=== PATIENT | female | born 1965 | race Caucasian/White ===

== ENCOUNTER 2022-03-20 15:55 | Inpatient (IN) | payer SELFPAY ==
[~2022-03-20] VITALS: Ht 170.2 cm; Wt 129.9 kg
[~2022-03-20 15:55] MED LIST: CAPSAICIN60 GM TP; NORCO 325 MG-51 TAB PO; SOLARAZE3% TP
[2022-03-20 16:57] LABS: HEMATOCRIT 38.5 % (37.0-47.0); HEMOGLOBIN 12.8 g/dl (12.5-16.0); MEAN CELL VOLUME 84 fl (80.0-100.0); MEAN CORPUSCULAR HEMOGLOBIN 28 pg (27-31); MEAN CORPUSCULAR HGB CONC 33 g/dl (33.0-37.0); MEAN PLATELET VOLUME 9.6 fl (7.4-10.4); PLATELET COUNT 154 K/mm3 (130-400); RED BLOOD COUNT 4.59 M/mm3 (4.10-5.30); REDCELL DISTRIBUTION WIDTH-CV 13.9 % (11.5-14.5)
[2022-03-20 17:14] LABS: ALANINE AMINOTRANSFERASE 24 U/L (0-55); ALBUMIN 3.8 gm/dL (3.5-5.0); ALKALINE PHOSPHATASE 82 U/L (40-150); ANION GAP 14 mmol/L (7-16); AST,SGOT 28 U/L (5-34); BILIRUBIN,TOTAL 0.4 mg/dL (0.2-1.2); BLOOD UREA NITROGEN 8 mg/dL (10-20); CARBON DIOXIDE 20 mmol/L (22-29); CHLORIDE 106 mmol/L (98-107); CREATININE, serum 0.87 mg/dL (0.57-1.11); GLUCOSE 105 mg/dL (70-99); POTASSIUM 3.7 mmol/L (3.5-4.5); SODIUM 140 mmol/L (136-145); TOTAL PROTEIN 7.4 gm/dL (6.2-8.1)
[2022-03-20 17:31] LABS: BAND 8 % (0-10); BASOPHIL 2 % (0-2); EOSINOPHIL 4 % (0-4); LYMPHOCYTE 17 % (20.0-51.0); METAMYELOCYTE 1 % (0-0); NEUTROPHILS 51 % (42.0-75.2); PLATELET ESTIMATE NORMAL (NORMAL)
[2022-03-20 17:34] LABS: TSH w REFLEX 0.303 uIU/mL (0.350-4.940)
[2022-03-20 17:36] LABS: TROPONIN-I < 0.010 ng/mL (0.00-0.033)
[2022-03-20 19:16] LABS: COLLECTION METHOD CLEAN CATCH
[2022-03-20 19:21] LABS: MUCOUS Present (NOT PRESENT); PH 6 (5-8); SQUAMOUS EPITHELIAL 0-2 /hpf (0-10); URINE APPEARANCE Clear (CLEAR/HAZY); URINE BACTERIA None Seen /hpf (NONE SEEN); URINE BILIRUBIN Negative (NEGATIVE); URINE BLOOD 2+ (NEGATIVE); URINE COLOR Yellow (YELLOW); URINE GLUCOSE Negative (NEGATIVE); URINE KETONE Negative (NEGATIVE); URINE LEUKOCYTE ESTERASE Negative (NEGATIVE); URINE NITRATE Positive (NEGATIVE); URINE PROTEIN(semi-quant) Negative (NEGATIVE); URINE RBC None Seen /hpf (0-2); URINE UROBILINOGEN Negative (NEGATIVE)
[2022-03-20] MEDS ORDERED: TIROSINT25 MC1 PO (19:39)
[2022-03-20] MEDS ORDERED: PROZAC40 MG PO ×2 (19:39→22:29)
[2022-03-20] MEDS ORDERED: TENORMIN 5050 MG/TAB PO (19:40)
[2022-03-20] MEDS ORDERED: PRILOSEC 20MG20 MG PO (19:40)
[2022-03-20] MEDS ORDERED: ATIVAN 1MG T1 MG/TAB PO (19:41)
[2022-03-20 20:25] LABS: INR 1.2 (0.8-3.0); PROTHROMBIN TIME 13.5 SECONDS (9.7-12.8)
[2022-03-20 21:25] VITALS: BP 149/70; PULSE 74; TEMP 98.3
[2022-03-20] MEDS ORDERED: SYNTHROID 0.0.025 MG PO (22:28)
[2022-03-20] MEDS ORDERED: TENORMIN 2525 MG/TAB PO (22:29)
[2022-03-20] MEDS ORDERED: SYNTHROID0.2 MG/TAB PO (22:29)
[2022-03-21 00:29] VITALS: BP 155/78; PULSE 65; TEMP 98.8
[2022-03-21 05:41] VITALS: BP 128/62; PULSE 58; TEMP 98.8
--- NOTE | 2022-03-21 06:15 | NUR ---
PT ARRIVED TO THE MEDICAL FLOOR AROUND 0HRS TO RM 305. PT A&O X 4; VSS; O2 2L VIA OXYMASK. PT COMPLAINED OF A HEADACHE. PT GIVEN TRAMADOL AND TYLENOL. PT FELT, ALTHOUGH IT TOOK A LONG TIME TO GET HER PAIN UNDER CONTROL, IT WAS BETTER BY MORNING. PT DENIED CHEST PAIN, N,V,D OR DIZZINESS. PT'S O2 SATS DROPPED DOWN TO 86% DURING MY ASSESSMENT. RT CALLED AND O2 RAISED TO 4L. PT'S O2 SATS UP TO 94%. ADMISSIONS ASSESSMENT AND MED REC COMPLETE. PT ORIENTED TO ROOM AND HOSPITAL POLICY. POC DISCUSSED WITH PT. PT VERBALIZED UNDERSTANDING. ALL QUESTIONS AND CONCERNS ADDRESSED. PT EXPRESSED NO ADDITIONAL NEEDS AT THIS TIME. CALL LIGHT WITHIN REACH.
--- NOTE | 2022-03-21 06:30 | NUR ---
PATIENT IS AWAKE IN THE ROOM, DENIES ANY NEEDS AT THIS TIME
[2022-03-21 06:49] LABS: HEMOGLOBIN 11.7 g/dl (12.5-16.0); MEAN CELL VOLUME 86 fl (80.0-100.0); MEAN CORPUSCULAR HEMOGLOBIN 28 pg (27-31); MEAN CORPUSCULAR HGB CONC 32 g/dl (33.0-37.0); PLATELET COUNT 139 K/mm3 (130-400); RED BLOOD COUNT 4.19 M/mm3 (4.10-5.30); REDCELL DISTRIBUTION WIDTH-CV 13.9 % (11.5-14.5)
[2022-03-21 06:55] LABS: HEMATOCRIT 36.2 % (37.0-47.0)
[2022-03-21 07:08] LABS: ALBUMIN 3.5 gm/dL (3.5-5.0); BILIRUBIN,TOTAL 0.3 mg/dL (0.2-1.2); CALCIUM 8.8 mg/dL (8.4-10.2); CREATININE, serum 0.82 mg/dL (0.57-1.11); POTASSIUM 4.1 mmol/L (3.5-4.5); TOTAL PROTEIN 6.7 gm/dL (6.2-8.1)
[2022-03-21 07:13] VITALS: BP 127/64; PULSE 70; TEMP 98.4
[2022-03-21 07:54] LABS: BAND 4 % (0-10); LYMPHOCYTE 24 % (20.0-51.0); METAMYELOCYTE 2 % (0-0); MYELOCYTE 1 % (0-0); NEUTROPHILS 60 % (42.0-75.2)
[2022-03-21 07:55] LABS: HYPOCHROMIA 1+; MICROCYTOSIS 1+; PLATELET ESTIMATE NORMAL (NORMAL)
[2022-03-21 11:58] VITALS: BP 140/57; PULSE 63; TEMP 98.8
--- NOTE | 2022-03-21 12:59 | NUR ---
Patient covid positive. Phone call made to the patient's room to complete intake. Patient currently lives at home alone in [place]. She is independent with her ADL's and does not utilize any DME to assit with mobility. Patient has no home oxygen needs. PCP is Dr. Abbi Reyes and she utilizes [facility] for medications. Patient states that she can normally afford her medications unless its really expensive. Patient does not have a DPOA-HC established at this time but states that this has scared her and would like to complete one while she's here. Informed her we coordinate with the patient's RN to get this competed before discharge. Patient states that she did not get a financial assistance application at the time of admission. Let the patient know i would reach out to our financial counselor to get in contact with the patient. Patient is planning on returning home once medically ready. SW reached out to [facility] by phone and left message. Email sent as well. Discharge plan: Home
[2022-03-21 15:34] VITALS: BP 146/74; PULSE 70; TEMP 100.2
--- NOTE | 2022-03-21 19:00 | NUR ---
PT HAD UNEVENTFUL DAY. NO OTHER CONCERNS REPORT GIVEN TO CHELSEY CONLEY
[2022-03-21 21:09] VITALS: BP 142/67; PULSE 70; TEMP 98.8
--- NOTE | 2022-03-21 21:11 | NUR ---
Patient assessed around 2029. Complained of nausea at that time, and given PRN Zofran as requested. Denies pain and discomfort. Currenty on room air. Denies SOB and dyspnea. LS diminished. Reports productive cough getting better. Voiced no questions, needs, or concerns at that time. In bed with call light within reach.
[2022-03-22 00:56] VITALS: BP 151/73; PULSE 60; TEMP 99
[2022-03-22 05:33] VITALS: BP 154/86; PULSE 62; TEMP 99.6
--- NOTE | 2022-03-22 06:03 | NUR ---
Patient has worn oxygen at 2 L/min via oxymask during the night since she does not have her CPAP. Did have pain and given PRN Ultram once during the night. Also given PRN Acetaminophen this morning for low grade fever. Patient did state that she was anxious this morning and given PRN Ativan. Voices no further questions, needs, or concerns at this time. In bed with call light within reach.
[2022-03-22 06:34] LABS: GRAN # 2.4 K/mm3 (1.4-6.5); GRAN % 56.2 % (42.2-75.2); HEMOGLOBIN 11.9 g/dl (12.5-16.0); LYMPH # 1.2 K/mm3 (1.2-3.4); LYMPH % 28.8 % (20.0-51.0); MEAN CELL VOLUME 87 fl (80.0-100.0); MEAN CORPUSCULAR HEMOGLOBIN 28 pg (27-31); MEAN CORPUSCULAR HGB CONC 32 g/dl (33.0-37.0); MEAN PLATELET VOLUME 9.8 fl (7.4-10.4); MONO # 0.6 K/mm3 (0.1-0.6); MONO % 14.3 % (1.7-9.3); PLATELET COUNT 139 K/mm3 (130-400); RED BLOOD COUNT 4.25 M/mm3 (4.10-5.30); REDCELL DISTRIBUTION WIDTH-CV 14.1 % (11.5-14.5)
[2022-03-22 06:38] LABS: HEMATOCRIT 36.8 % (37.0-47.0)
[2022-03-22 06:54] LABS: ALBUMIN 3.4 gm/dL (3.5-5.0); BILIRUBIN,TOTAL 0.2 mg/dL (0.2-1.2); CALCIUM 8.6 mg/dL (8.4-10.2); CREATININE, serum 0.84 mg/dL (0.57-1.11); POTASSIUM 3.8 mmol/L (3.5-4.5); TOTAL PROTEIN 6.5 gm/dL (6.2-8.1)
[2022-03-22 07:22] VITALS: BP 142/76; PULSE 58; TEMP 98.6
[2022-03-22 11:38] VITALS: BP 148/81; PULSE 57; TEMP 98.8
[2022-03-22] MEDS ORDERED: OMNICEF 300MG300 MG PO (12:26)
[2022-03-22] MEDS ORDERED: DOXYCYCLINE HY100 MG PO (12:27)
[2022-03-22] MEDS ORDERED: DECADRON6 MG PO (12:27)
--- NOTE | 2022-03-22 13:24 | NUR ---
RESPIRATORY THERAPY DID AN EX OX WITH THE PATIENT AND SHE DOES NOT REQUIRE O2 TO GO HOME. DR. CURTIS WILL COMPLETE THE PATIENT'S DISCHARGE AT THIS TIME.
--- NOTE | 2022-03-22 13:28 | NUR ---
Patient to discharge home today and will not need home oxygen. Pillar Worker followed up with [employer] Counselor and requested she contact patient. Discharge Plan: Home
--- NOTE | 2022-03-22 14:56 | NUR ---
DISCHARGE EDUCATION IS COMPLETED. PT VERBALIZED UNDERSTANDING. FRIEND WILL BE PICKING UP PRESCRIPTIONS AND ARRIVE TO PICK HER UP WELL. PCT WILL ESCORT OUT.
== END 2022-03-22 15:00 | disposition home or self-care (01) | DRG 177 ==
LOC: COL.ER 15:55 → MEDICAL 17:59
PROVIDERS: Emergency Medicine; Nurse Practitioner Family; ADMIT Internal Medicine
DX: U07.1 COVID-19 (principal); J96.01 Acute respiratory failure with hypoxia; J12.82 Pneumonia due to coronavirus disease 2019; E87.2 Acidosis; Z68.41 Body mass index [BMI] 40.0-44.9, adult; E05.00 Thyrotoxicosis with diffuse goiter without thyrotoxic crisis or storm; M19.90 Unspecified osteoarthritis, unspecified site; F32.A Depression, unspecified; T38.0X5A Adverse effect of glucocorticoids and synthetic analogues, initial encounter; E66.9 Obesity, unspecified; I10 Essential (primary) hypertension; R32 Unspecified urinary incontinence; I45.10 Unspecified right bundle-branch block; F17.210 Nicotine dependence, cigarettes, uncomplicated; R73.9 Hyperglycemia, unspecified; F41.9 Anxiety disorder, unspecified; G43.909 Migraine, unspecified, not intractable, without status migrainosus; Z88.1 Allergy status to other antibiotic agents; Z88.8 Allergy status to other drugs, medicaments and biological substances; Z88.2 Allergy status to sulfonamides; Z90.49 Acquired absence of other specified parts of digestive tract; Z90.710 Acquired absence of both cervix and uterus
CPT/HCPCS: 99223-AI; 99233-AI; 99239; J0696; J0780; J1100; J1200; J1650; J1885; J2405; J2550; J7120; J8540; Q9967

== ENCOUNTER 2022-03-24 01:25 | Inpatient (IN) | payer SELFPAY ==
[~2022-03-24] VITALS: Ht 170.2 cm; Wt 122.2 kg
[~2022-03-24 01:25] MED LIST changes: +ATIVAN 1MG T1 MG/TAB PO; +DECADRON6 MG PO; +DOXYCYCLINE HY100 MG PO; +OMNICEF 300MG300 MG PO; +PRILOSEC 20MG20 MG PO; +PROZAC40 MG PO; +SYNTHROID 0.0.025 MG PO; +SYNTHROID0.2 MG/TAB PO; +TENORMIN 2525 MG/TAB PO; +TENORMIN 5050 MG/TAB PO; +TIROSINT25 MC1 PO
[2022-03-24 02:06] LABS: ARTERIAL BLD GAS O2 SATURATION 91.1 % (92-100); ARTERIAL BLD GAS TCO2 CT 21.9; ARTERIAL BLOOD GAS BASE EXCESS -1.2 (-2-2); ARTERIAL BLOOD GAS PCO2 28.3 mmHg (35-45); ARTERIAL BLOOD GAS PO2 58.3 mmHg (80-100); ARTERIAL BLOOD GAS pH 7.49 (7.35-7.45)
[2022-03-24 02:32] LABS: BASO % 0.3 % (0.0-2.0); EOS % 0.6 % (0.0-4.0); GRAN # 1.9 K/mm3 (1.4-6.5); GRAN % 58.6 % (42.2-75.2); HEMATOCRIT 37.7 % (37.0-47.0); HEMOGLOBIN 12.4 g/dl (12.5-16.0); LYMPH # 0.9 K/mm3 (1.2-3.4); LYMPH % 26.6 % (20.0-51.0); MEAN CELL VOLUME 84 fl (80.0-100.0); MEAN CORPUSCULAR HEMOGLOBIN 28 pg (27-31); MEAN CORPUSCULAR HGB CONC 33 g/dl (33.0-37.0); MEAN PLATELET VOLUME 9.5 fl (7.4-10.4); MONO # 0.4 K/mm3 (0.1-0.6); PLATELET COUNT 152 K/mm3 (130-400); RED BLOOD COUNT 4.47 M/mm3 (4.10-5.30); REDCELL DISTRIBUTION WIDTH-CV 14.4 % (11.5-14.5)
[2022-03-24 02:47] LABS: ALBUMIN 3.2 gm/dL (3.5-5.0); BILIRUBIN,TOTAL 0.5 mg/dL (0.2-1.2); C-REACTIVE PROTEIN 3.78 mg/dL (0.00-0.50); CALCIUM 8.6 mg/dL (8.4-10.2); CREATININE, serum 0.95 mg/dL (0.57-1.11); POTASSIUM 3.9 mmol/L (3.5-4.5); TOTAL PROTEIN 6.9 gm/dL (6.2-8.1)
[2022-03-24 05:03] VITALS: BP 125/63; PULSE 55; TEMP 98.8
--- NOTE | 2022-03-24 05:03 | NUR ---
PT BROUGHT UP FROM ED
--- NOTE | 2022-03-24 06:14 | NUR ---
Pt alert and oriented, resting quietly in bed. Follows commands. Currently on 2L NC, satting WNL. Pt reports minor headache pain, but refuses pain medication. Pt reported nausea and feeling "warm". Prn zofran administered. Pt afebrile upon arrival to unit. Skin is warm, but not diaphoretic. Pt denies chest pain/SOB. Shift assessment performed. Medications administered per orders and education provided. Admission intake and intake assessments completed. Allx confirmed. Med rx reviewed and completed. COVID and infectious disease screenings completed. Enforcing COVID isolation. VS stable on admission to unit. Pt tolerated PO medications. Nourishment provided. IV antibx continued. Noted a red/bruised/raised area on the pt's left forearm. Pt complained on pain in that spot when palpated. States it was where her last IV was placed. The area has a small red streak on the arm. Will notify dayshift to continue to monitor the spot. BLE have 1+ edema. 2+ pedal and radial pulses. Lung sounds are clear, but I did note some expiratory wheezing at rest. Pt does not report any questions at this time. Will continue to monitor.
--- NOTE | 2022-03-24 06:30 | NUR ---
PT IS AWAKE AND DOING GOOD. PT IS ON 2L O2 AND IS SATURATING 97% AND THE RESPIRATORY THERAPIST PLACED THE PATIENT ON 1L. PT IS REALLY ONLY HYPOXIC WITH EXERTION. WHEN THE PATIENT WAS DISCHARGED A COUPLE DAYS AGO, HER EXERCISE OXIMETERY DID NOT QUALIFY HER FOR OXYGEN AT THAT TIME. THE PATIENT DOES STATE THAT SHE USES A CPAP AT NIGHT. ASKED THE PATIENT TO HAVE SOMEONE BRING HER CPAP IN FOR NIGHT TIME SO WE CAN SEE IF SHE NEEDS TO HAVE OXYGEN AT NIGHT. WILL DISCUSS WITH PROVIDER FOR THE DAY. NO OTHER CONCERNS AT THIS TIME.
[2022-03-24 11:51] VITALS: BP 142/75; PULSE 55; TEMP 98.5
--- NOTE | 2022-03-24 14:24 | NUR ---
Mill Machinist contacted patient by room phone to discuss discharge planning. Patient was admitted 03/20/22-03/22/22 and discharged home. At time of discharge, patient did not require home oxygen. Patient states her preferred pharmacy is [facility] and she wasn't able to fill her discharge medications between hospitalizations. Patient sees Dr. Meme Reyes at [facility] for primary care. Patient lives alone here in [place]. Patient does not use any DME and is independent with ADLS. Patient is interested in DPOA-HC form. SW provided. Patient plans to return home at time of discharge. Discharge Plan: Home
[2022-03-24 15:30] VITALS: BP 144/73; PULSE 61; TEMP 98.4
--- NOTE | 2022-03-24 18:41 | NUR ---
PATIENT WITH COVID, STILL ON O2 1L VIA N.C, COMPLAINS OF HEADACHE RAISED AT 5PM TYENOL 625MG GIVEN OTHERWISE SHE HAD A CALM DAY
[2022-03-24 19:26] VITALS: BP 142/87; PULSE 60; TEMP 99
--- NOTE | 2022-03-24 22:00 | NUR ---
Patient assessed around 1930. Denied pain and discomfort. Did complain of anxiety and given PRN Ativan. On oxygen at 1 L/min via NC. RT in room at time of assessment to set up home CPAP. Patient voiced no further questions, needs, or concerns at that time. In bed with call light within reach.
[2022-03-24 23:28] VITALS: BP 143/65; PULSE 59; TEMP 98.2
[2022-03-25 04:36] VITALS: BP 143/80; PULSE 53; TEMP 98.2
--- NOTE | 2022-03-25 05:05 | NUR ---
Patient has been wearing CPAP this shift. Continues on IV ABX per orders. Denies pain and discomfort at this time. In bed with call light within reach.
[2022-03-25 07:15] LABS: EOS % 0.3 % (0.0-4.0); GRAN # 1.5 K/mm3 (1.4-6.5); GRAN % 47.2 % (42.2-75.2); HEMOGLOBIN 11.2 g/dl (12.5-16.0); LYMPH # 1.1 K/mm3 (1.2-3.4); LYMPH % 34.5 % (20.0-51.0); MEAN CELL VOLUME 85 fl (80.0-100.0); MEAN CORPUSCULAR HEMOGLOBIN 28 pg (27-31); MEAN CORPUSCULAR HGB CONC 33 g/dl (33.0-37.0); MEAN PLATELET VOLUME 9.9 fl (7.4-10.4); MONO # 0.5 K/mm3 (0.1-0.6); MONO % 17.3 % (1.7-9.3); PLATELET COUNT 130 K/mm3 (130-400); RED BLOOD COUNT 3.97 M/mm3 (4.10-5.30); REDCELL DISTRIBUTION WIDTH-CV 13.9 % (11.5-14.5)
[2022-03-25 07:22] LABS: CALCIUM 8.6 mg/dL (8.4-10.2); CREATININE, serum 0.73 mg/dL (0.57-1.11); POTASSIUM 4.2 mmol/L (3.5-4.5)
[2022-03-25 07:24] LABS: HEMATOCRIT 33.8 % (37.0-47.0)
[2022-03-25 07:43] VITALS: BP 143/73; PULSE 60; TEMP 98.4
[2022-03-25 11:24] VITALS: BP 148/80; PULSE 56; TEMP 98.3
--- NOTE | 2022-03-25 11:32 | NUR ---
Community Living Instructor spoke with patient's RN and she has been independent in the room.
[2022-03-25 15:37] VITALS: BP 145/71; PULSE 60; TEMP 98.4
--- NOTE | 2022-03-25 18:16 | NUR ---
PATIENT ORIENT AND ALERT X4, VSS, HAD A CALM DAY, REPORTS LOTS OF IMPROVEMENT, HAS HER OWN CPAP MACHINE, O2 1L.
[2022-03-25 20:00] VITALS: BP 159/83; PULSE 66
[2022-03-25 20:50] VITALS: TEMP 98.7
[2022-03-26 00:55] VITALS: BP 154/72; PULSE 46; TEMP 98.3
[2022-03-26 04:51] VITALS: BP 152/76; PULSE 50; TEMP 98.6
--- NOTE | 2022-03-26 05:30 | NUR ---
ASSESSMENT COMPLETE FOR THIS SHIFT. PT LAYING IN BED COMPLAINING OF A HEADACHE. PT GIVEN TYLENOL PER REQUEST. PT FELT THE TYLENOL WAS EFFECTIVE FOR HER HEADACHE. PT DENIED CHEST PAIN, PALPITATIONS, SOB, N,V,D, OR DIZZINESS. PT EXPRESSED NO OTHER NEEDS AT THIS TIME. CALL LIGHT WITHIN REACH.
[2022-03-26 07:25] LABS: BASO % 0.2 % (0.0-2.0); EOS % 0.2 % (0.0-4.0); GRAN # 2.4 K/mm3 (1.4-6.5); GRAN % 54.4 % (42.2-75.2); HEMATOCRIT 37.1 % (37.0-47.0); HEMOGLOBIN 11.8 g/dl (12.5-16.0); LYMPH # 1.4 K/mm3 (1.2-3.4); LYMPH % 31.3 % (20.0-51.0); MEAN CELL VOLUME 86 fl (80.0-100.0); MEAN CORPUSCULAR HEMOGLOBIN 27 pg (27-31); MEAN CORPUSCULAR HGB CONC 32 g/dl (33.0-37.0); MEAN PLATELET VOLUME 9.9 fl (7.4-10.4); MONO # 0.5 K/mm3 (0.1-0.6); MONO % 12.5 % (1.7-9.3); PLATELET COUNT 183 K/mm3 (130-400); REDCELL DISTRIBUTION WIDTH-CV 14.1 % (11.5-14.5)
[2022-03-26 07:54] LABS: ALBUMIN 3.3 gm/dL (3.5-5.0); BILIRUBIN,DIRECT 0.2 mg/dL (0.0-0.5); BILIRUBIN,TOTAL 0.3 mg/dL (0.2-1.2); CREATININE, serum 0.69 mg/dL (0.57-1.11); TOTAL PROTEIN 6.6 gm/dL (6.2-8.1)
[2022-03-26 08:00] VITALS: BP 153/69; PULSE 48; TEMP 98.3
[2022-03-26 12:41] VITALS: BP 142/67; PULSE 50; TEMP 98.6
[2022-03-26 15:58] VITALS: BP 145/70; PULSE 57; TEMP 98.7
--- NOTE | 2022-03-26 19:06 | NUR ---
PT ORIENT AND ALERT X3, VSS
[2022-03-26 20:00] VITALS: BP 132/78; PULSE 58; TEMP 98.5
[2022-03-27] VITALS: BP 149/60; PULSE 49; TEMP 98.6
[2022-03-27 03:43] VITALS: BP 155/83; PULSE 51; TEMP 97.9
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
[2022-03-27 06:55] LABS: HEMATOCRIT 37.5 % (37.0-47.0); HEMOGLOBIN 12.4 g/dl (12.5-16.0); MEAN CELL VOLUME 84 fl (80.0-100.0); MEAN CORPUSCULAR HEMOGLOBIN 28 pg (27-31); MEAN CORPUSCULAR HGB CONC 33 g/dl (33.0-37.0); MEAN PLATELET VOLUME 9.8 fl (7.4-10.4); PLATELET COUNT 200 K/mm3 (130-400); RED BLOOD COUNT 4.46 M/mm3 (4.10-5.30)
[2022-03-27 07:01] VITALS: BP 132/74; PULSE 50; TEMP 98.1
[2022-03-27 07:13] LABS: CALCIUM 9.1 mg/dL (8.4-10.2); CREATININE, serum 0.69 mg/dL (0.57-1.11)
--- NOTE | 2022-03-27 07:28 | NUR ---
Patient sitting up in the recliner. A&Ox4. VSS. No reported SOB and denies pain and discomfort. Independent in the room. IV CDI, fluids infusing. Droplet/contact precautions in place. Call light within reach
[2022-03-27 07:53] LABS: LYMPHOCYTE 22 % (20.0-51.0); NEUTROPHILS 70 % (42.0-75.2); PLATELET ESTIMATE NORMAL (NORMAL)
[2022-03-27 10:58] VITALS: BP 128/69; PULSE 52; TEMP 98
[2022-03-27] MEDS ORDERED: DECADRON6 MG PO (11:37)
--- NOTE | 2022-03-27 15:02 | NUR ---
Discharge paperwork reviewed with the patient. Patient verbalized an understanding to follow doctors orders. IV removed, tip intact. Patient ambulated independently to awaiting ride. No further needs expressed
== END 2022-03-27 15:02 | disposition home or self-care (01) | DRG 177 ==
LOC: COL.ER 01:25 → MEDICAL 03:12
PROVIDERS: Emergency Medicine; Student in an Organized Health Care Education/Training Program; ADMIT Family Medicine
PROC: XW033E5 Introduction of Remdesivir Anti-infective into Peripheral Vein, Percutaneous Approach, New Technology Group 5 (ICD-10-PCS; principal; 2022-03-24)
DX: U07.1 COVID-19 (principal); J96.01 Acute respiratory failure with hypoxia; J12.82 Pneumonia due to coronavirus disease 2019; Z68.41 Body mass index [BMI] 40.0-44.9, adult; E05.00 Thyrotoxicosis with diffuse goiter without thyrotoxic crisis or storm; F32.A Depression, unspecified; F41.9 Anxiety disorder, unspecified; I10 Essential (primary) hypertension; F17.210 Nicotine dependence, cigarettes, uncomplicated; M19.90 Unspecified osteoarthritis, unspecified site; G43.909 Migraine, unspecified, not intractable, without status migrainosus; E66.9 Obesity, unspecified; R73.9 Hyperglycemia, unspecified; K44.9 Diaphragmatic hernia without obstruction or gangrene; K76.0 Fatty (change of) liver, not elsewhere classified; J44.9 Chronic obstructive pulmonary disease, unspecified; R00.1 Bradycardia, unspecified; G47.33 Obstructive sleep apnea (adult) (pediatric); Z99.81 Dependence on supplemental oxygen; Z87.19 Personal history of other diseases of the digestive system; Z90.710 Acquired absence of both cervix and uterus; Z90.49 Acquired absence of other specified parts of digestive tract; Z88.1 Allergy status to other antibiotic agents; Z88.2 Allergy status to sulfonamides; Z88.8 Allergy status to other drugs, medicaments and biological substances
CPT/HCPCS: 99223-AI; 99232-AI; 99239; J0248; J0696; J1100; J1650; J2405; J7030; J7050; Q9967

== ENCOUNTER 2022-03-29 16:14 | Emergency (ER) | payer SELFPAY ==
[~2022-03-29] VITALS: Ht 170.2 cm; Wt 121.8 kg
[2022-03-29 17:24] VITALS: BP 116/67; PULSE 82; TEMP 98.4
[2022-03-29] MEDS ORDERED: CEPHALEXIN500 M1 PO (18:41)
== END 2022-03-29 18:56 | disposition home or self-care (01) ==
LOC: COL.ER 16:14
DX: L03.113 Cellulitis of right upper limb (principal); Z88.1 Allergy status to other antibiotic agents; Z28.310 Unvaccinated for COVID-19
CPT/HCPCS: J1650

== ENCOUNTER 2023-01-31 18:41 | Emergency (ER) | payer MEDICAID ==
[~2023-01-31] VITALS: Ht 170.2 cm; Wt 127.3 kg
[~2023-01-31 18:41] MED LIST changes: +CEPHALEXIN500 M1 PO
[2023-01-31 19:29] LABS: BASO % 0.4 % (0.0-2.0); EOS # 0.3 K/mm3 (0.0-0.7); EOS % 3.5 % (0.0-4.0); GRAN # 4.2 K/mm3 (1.4-6.5); HEMATOCRIT 38.8 % (37.0-47.0); HEMOGLOBIN 13.4 g/dl (12.5-16.0); LYMPH % 28.5 % (20.0-51.0); MEAN CELL VOLUME 85 fl (80.0-100.0); MEAN CORPUSCULAR HEMOGLOBIN 29 pg (27-31); MEAN CORPUSCULAR HGB CONC 35 g/dl (33.0-37.0); MEAN PLATELET VOLUME 9.6 fl (7.4-10.4); MONO # 0.6 K/mm3 (0.1-0.6); MONO % 8.2 % (1.7-9.3); PLATELET COUNT 214 K/mm3 (130-400); RED BLOOD COUNT 4.58 M/mm3 (4.10-5.30); REDCELL DISTRIBUTION WIDTH-CV 13.4 % (11.5-14.5)
[2023-01-31 19:43] LABS: ALBUMIN 3.9 gm/dL (3.5-5.0); BILIRUBIN,TOTAL 0.3 mg/dL (0.2-1.2); CALCIUM 8.8 mg/dL (8.4-10.2); CREATININE, serum 0.81 mg/dL (0.57-1.11); POTASSIUM 3.6 mmol/L (3.5-4.5); TOTAL PROTEIN 7.3 gm/dL (6.2-8.1)
[2023-01-31] MEDS ORDERED: PREDNISONE20 MG PO (20:41)
[2023-01-31 21:16] VITALS: BP 159/90; PULSE 66
== END 2023-01-31 21:23 | disposition home or self-care (01) ==
LOC: COL.ER 18:41
PROVIDERS: Family Medicine
DX: R07.9 Chest pain, unspecified (principal); T36.0X5A Adverse effect of penicillins, initial encounter; R06.02 Shortness of breath; R11.0 Nausea; Z28.311 Partially vaccinated for COVID-19; Z88.1 Allergy status to other antibiotic agents
CPT/HCPCS: J0171; J1200; J2405; J2930; J7120

== ENCOUNTER 2023-02-22 09:32 | Emergency (ER) | payer MEDICAID ==
[~2023-02-22] VITALS: Ht 170.2 cm; Wt 130.0 kg
[~2023-02-22 09:32] MED LIST changes: +PREDNISONE20 MG PO
[2023-02-22 09:37] VITALS: TEMP 98.4
[2023-02-22 10:42] LABS: BASO % 0.6 % (0.0-2.0); EOS # 0.2 K/mm3 (0.0-0.7); EOS % 4.2 % (0.0-4.0); GRAN % 58.2 % (42.2-75.2); HEMATOCRIT 38.8 % (37.0-47.0); HEMOGLOBIN 13.1 g/dl (12.5-16.0); LYMPH # 1.4 K/mm3 (1.2-3.4); LYMPH % 26.7 % (20.0-51.0); MEAN CELL VOLUME 85 fl (80.0-100.0); MEAN CORPUSCULAR HEMOGLOBIN 29 pg (27-31); MEAN CORPUSCULAR HGB CONC 34 g/dl (33.0-37.0); MONO # 0.5 K/mm3 (0.1-0.6); MONO % 9.7 % (1.7-9.3); PLATELET COUNT 203 K/mm3 (130-400); RED BLOOD COUNT 4.58 M/mm3 (4.10-5.30); REDCELL DISTRIBUTION WIDTH-CV 13.6 % (11.5-14.5)
[2023-02-22 11:00] LABS: ALBUMIN 3.8 gm/dL (3.5-5.0); BILIRUBIN,TOTAL 0.3 mg/dL (0.2-1.2); C-REACTIVE PROTEIN 0.69 mg/dL (0.00-0.50); CREATININE, serum 0.74 mg/dL (0.57-1.11); POTASSIUM 4.1 mmol/L (3.5-4.5); TOTAL PROTEIN 6.9 gm/dL (6.2-8.1)
[2023-02-22 11:19] LABS: THYROID STIMULATING HORMONE 0.228 uIU/mL (0.350-4.940)
[2023-02-22 11:25] LABS: COLLECTION METHOD CLEAN CATCH
[2023-02-22 11:34] LABS: MUCOUS Present (NOT PRESENT); SQUAMOUS EPITHELIAL 0-2 /hpf (0-10); URINE BACTERIA Rare /hpf (NONE SEEN); URINE RBC 0-2 /hpf (0-2)
[2023-02-22 11:36] LABS: PH 5.5 (5.0-8.5); URINE APPEARANCE Clear (CLEAR/HAZY); URINE BLOOD Negative (NEGATIVE); URINE COLOR Yellow (YELLOW); URINE GLUCOSE Negative (NEGATIVE); URINE KETONE Negative (NEGATIVE); URINE NITRATE Negative (NEGATIVE); URINE PROTEIN(semi-quant) Negative (NEGATIVE); URINE UROBILINOGEN 0.2 E.U/dL (0.2-1.0)
[2023-02-22 13:24] VITALS: BP 135/91; PULSE 71
== END 2023-02-22 13:27 | disposition home or self-care (01) ==
LOC: COL.ER 09:32
PROVIDERS: Nurse Practitioner
DX: F41.9 Anxiety disorder, unspecified (principal); R11.0 Nausea; E03.9 Hypothyroidism, unspecified; F17.210 Nicotine dependence, cigarettes, uncomplicated; Z79.899 Other long term (current) drug therapy; Z86.16 Personal history of COVID-19; Z28.310 Unvaccinated for COVID-19
CPT/HCPCS: J2060; J2405; J7030

== ENCOUNTER → 2024-07-02 | Outpatient (CLI) | payer OTHER | LOC: COL.RAD 08:50 | DX: M17.11 Unilateral primary osteoarthritis, right knee (principal); M25.562 Pain in left knee; M79.642 Pain in left hand; M79.641 Pain in right hand; M25.511 Pain in right shoulder; M25.512 Pain in left shoulder ==